=== PATIENT | female | born 1970 | race African-American/Black ===

== ENCOUNTER 2016-11-02 23:20 | Emergency (ER) | payer OTHER ==
[~2016-11-02] VITALS: Ht 162.6 cm; Wt 129.0 kg
[2016-11-02 23:59] LABS: BASOPHIL COUNT 0.1 K/uL (0-0.1); EOSINOPHIL (%) 2.3 % (0-5); EOSINOPHIL COUNT 0.2 K/uL (0-0.3); HEMATOCRIT 33.9 % (36.0-46.0); IMMATURE GRANULOCYTE (%) 0.3 % (0.0-0.7); IMMATURE GRANULOCYTE COUNT 0.2 K/uL; LYMPHOCYTE COUNT 1.9 K/uL (1.0-2.8); MCH 26.2 PG (29.0-34.0); MCHC 30.1 G/DL (30.0-36.0); MCV 86.9 FL (83-99); MEAN PLAT.VOLUME 10.3 uM^3 (9.5-12.4); MONOCYTE (%) 10.9 % (3-12); MONOCYTE COUNT 0.8 K/uL (0-0.8); NEUTROPHIL (%) 58.5 % (45-76); NEUTROPHIL COUNT 4.2 K/uL (1.8-6.4); PLATELET COUNT 428 K/uL (156-360); RBC DIS.WIDTH-CV 15.9 % (11.8-14.6); RBC DIS.WIDTH-SD 49.5 % (39-53); WHITE BLOOD COUNT 7.1 K/uL (4.1-10.2)
[2016-11-03 00:09] LABS: CHLORIDE 102 mEq/L (99-109); POTASSIUM 4.9 mEq/L (3.7-5.4); SODIUM 138 mEq/L (136-147)
[2016-11-03 00:11] LABS: GLUCOSE 138 mg/dL (70-99)
[2016-11-03 00:12] LABS: ANION GAP 13 MEQ/L (2-14)
[2016-11-03 00:13] LABS: TOTAL BILIRUBIN 0.1 mg/dL (0.0-1.0)
[2016-11-03 00:15] LABS: ALKALINE PHOSPHATASE 81 IU/L (3-129); GFR ESTIMATE (CALCULATED) > 59 mL/min/
[2016-11-03 00:16] LABS: UREA NITROGEN (BUN) 13 mg/dL (9-23)
[2016-11-03 00:18] LABS: LIPASE 32 U/L (1.0-51.0)
[2016-11-03 00:21] LABS: TROP-I INTERPRETATION NEGATIVE; TROPONIN-I 0.03 ng/mL (0.0-0.30)
[2016-11-03 00:23] LABS: BASE EXCESS -0.8 mEq/L (-3 to +3); BICARBONATE 26.9 mEq/L (22-26); CARBOXY HGB 2.5 % (0-5); COMMENTS - BLOOD GASES A+C+; DEVICE NC; METHEMOGLOBIN 0 % (0-1.5); O2 FLOW 3 L/MIN; PCO2 60 mm Hg (35-45); PO2 78 mm Hg (80-100); SITE RR; pH 7.26 (7.35-7.45)
[2016-11-03 04:55] VITALS: BP 134/71
[2016-11-03] MEDS ORDERED: ZESTORETIC 10-1 EAC1 PO (17:42)
[2016-11-03] MEDS ORDERED: GLUCOPHAGE500 MG PO (17:42)
[2016-11-03] MEDS ORDERED: PROAIR HFA8.5 GM IH (17:44)
[2016-11-03] MEDS ORDERED: OMEPRAZOLE40 M1 PO (17:45)
== END 2016-11-03 04:59 | disposition left against medical advice (07) ==
LOC: EME 23:20
PROVIDERS: Emergency Medicine
DX: I11.0 Hypertensive heart disease with heart failure (principal); I50.9 Heart failure, unspecified; E87.2 Acidosis; E11.9 Type 2 diabetes mellitus without complications; Z87.891 Personal history of nicotine dependence; J44.9 Chronic obstructive pulmonary disease, unspecified; Z99.81 Dependence on supplemental oxygen; N61.0 Mastitis without abscess
CPT/HCPCS: 36600; 71010; 71260; 74177; 80053; 82803; 83605; 83690; 83880; 84484; 85025; 87040; 93005; 94640; 99281; 99285; J1940; J3370

== ENCOUNTER 2016-11-03 16:17 | Inpatient (IN) | payer OTHER ==
[~2016-11-03] VITALS: Ht 160 cm; Wt 129.3 kg
[2016-11-03 17:05] LABS: EOSINOPHIL (%) 1.8 % (0-5); EOSINOPHIL COUNT 0.2 K/uL (0-0.3); HEMATOCRIT 34.7 % (36.0-46.0); IMMATURE GRANULOCYTE (%) 0.1 % (0.0-0.7); IMMATURE GRANULOCYTE COUNT 0.1 K/uL; LYMPHOCYTE COUNT 1.3 K/uL (1.0-2.8); MCH 26.1 PG (29.0-34.0); MONOCYTE (%) 8.2 % (3-12); MONOCYTE COUNT 0.7 K/uL (0-0.8); NEUTROPHIL (%) 73.5 % (45-76); PLATELET COUNT 407 K/uL (156-360); RBC DIS.WIDTH-CV 15.8 % (11.8-14.6); RBC DIS.WIDTH-SD 48.9 % (39-53); RED BLOOD COUNT 3.99 M/uL (3.80-5.20); WHITE BLOOD COUNT 8.2 K/uL (4.1-10.2)
[2016-11-03 17:13] LABS: CHLORIDE 100 mEq/L (99-109); POTASSIUM 4.7 mEq/L (3.7-5.4); SODIUM 140 mEq/L (136-147)
[2016-11-03 17:16] LABS: GLUCOSE 95 mg/dL (70-99)
[2016-11-03 17:17] LABS: ANION GAP 9 MEQ/L (2-14)
[2016-11-03 17:19] LABS: ALKALINE PHOSPHATASE 79 IU/L (3-129); GFR ESTIMATE (CALCULATED) 56 mL/min/
[2016-11-03 17:20] LABS: TOTAL BILIRUBIN 0.5 mg/dL (0.0-1.0); UREA NITROGEN (BUN) 18 mg/dL (9-23)
[2016-11-03 17:22] LABS: LIPASE 24 U/L (1.0-51.0)
[2016-11-03 17:25] LABS: TROP-I INTERPRETATION NEGATIVE; TROPONIN-I 0.03 ng/mL (0.0-0.30)
[2016-11-03 17:28] LABS: QUANTITATIVE HCG < 4.0 MIU/ML
[2016-11-03] MEDS ORDERED: ZESTORETIC 10-1 EAC1 PO (17:42)
[2016-11-03] MEDS ORDERED: GLUCOPHAGE500 MG PO (17:42)
[2016-11-03] MEDS ORDERED: PROAIR HFA8.5 GM IH (17:44)
[2016-11-03] MEDS ORDERED: OMEPRAZOLE40 M1 PO (17:45)
[2016-11-03 20:51] VITALS: BP 115/71
[2016-11-03 21:23] LABS: POINT-OF-CARE USER ID AHSUCEG
[2016-11-03 23:30] VITALS: BP 140/84
[2016-11-04 03:50] VITALS: BP 132/69
[2016-11-04 08:36] VITALS: BP 129/76
[2016-11-04 09:33] LABS: BASE EXCESS 3.2 mEq/L (-3 to +3); BICARBONATE 32.1 mEq/L (22-26); CARBOXY HGB 1.4 % (0-5); METHEMOGLOBIN 0.5 % (0-1.5); PO2 78 mm Hg (80-100)
[2016-11-04 09:39] LABS: COMMENTS - BLOOD GASES A+C+; DEVICE NC; O2 FLOW 2 L/MIN; PCO2 75 mm Hg (35-45); SITE RR; TOTAL RESP RATE 24 resp/min; pH 7.24 (7.35-7.45)
[2016-11-04 13:07] LABS: BASE EXCESS 1.6 mEq/L (-3 to +3); BICARBONATE 29.8 mEq/L (22-26); CARBOXY HGB 2.6 % (0-5); METHEMOGLOBIN 0.4 % (0-1.5); PCO2 68 mm Hg (35-45); PO2 61 mm Hg (80-100)
[2016-11-04 13:08] LABS: SITE RR
[2016-11-04 13:09] LABS: COMMENTS - BLOOD GASES A+C+; O2 FLOW 2 L/MIN
[2016-11-04 13:10] LABS: DEVICE CPAP; pH 7.25 (7.35-7.45)
[2016-11-04 14:50] VITALS: BP 119/59
[2016-11-04 16:33] LABS: POINT-OF-CARE METER ID UU14174216
[2016-11-04 19:32] VITALS: BP 121/85
[2016-11-05] VITALS (7 sets, daily range): BP systolic 113–137; BP diastolic 58–83
[2016-11-05 07:17] LABS: POINT-OF-CARE METER ID UU13113698
[2016-11-05 10:39] LABS: POINT-OF-CARE METER ID UU13113698
[2016-11-05 16:13] LABS: POINT-OF-CARE METER ID UU13113781
[2016-11-05 17:16] LABS: Estimated Average Glucose 151 mg/dL (70-123); HEMOGLOBIN A1c (GLYCOHEMOGLOB) 6.9 % HGB (Below 5.7)
[2016-11-06 03:37] VITALS: BP 114/75
[2016-11-06 06:50] LABS: HEMATOCRIT 32.5 % (36.0-46.0); MCH 24.9 PG (29.0-34.0); MCHC 28.3 G/DL (30.0-36.0); MCV 88.1 FL (83-99); MEAN PLAT.VOLUME 9.9 uM^3 (9.5-12.4); PLATELET COUNT 352 K/uL (156-360); RBC DIS.WIDTH-CV 16.1 % (11.8-14.6); RBC DIS.WIDTH-SD 51.7 % (39-53); RED BLOOD COUNT 3.69 M/uL (3.80-5.20); WHITE BLOOD COUNT 9.8 K/uL (4.1-10.2)
[2016-11-06 07:18] LABS: ANION GAP 7 MEQ/L (2-14); CHLORIDE 98 MEQ/L (99-109); GFR ESTIMATE (CALCULATED) > 59 mL/min/; GLUCOSE 92 mg/dL (70-99); POTASSIUM 4.3 MEQ/L (3.7-5.4); SAMPLE HEMOLYSIS CHECK 0; SAMPLE ICTERIC CHECK 0; SAMPLE LIPEMIA CHECK 0; SODIUM 139 MEQ/L (136-147); UREA NITROGEN (BUN) 26 mg/dL (9-23)
[2016-11-06 07:41] LABS: POINT-OF-CARE METER ID UU13113698
[2016-11-06 08:00] VITALS: BP 128/66
[2016-11-06] MEDS ORDERED: MOTRIN800 MG PO (09:08)
[2016-11-06 09:31] LABS: BASE EXCESS 6.8 mEq/L (-3 to +3); BICARBONATE 33.7 mEq/L (22-26); CARBOXY HGB 1.3 % (0-5); COMMENTS - BLOOD GASES A+C+; DEVICE NC; METHEMOGLOBIN 0.8 % (0-1.5); O2 FLOW 2 L/MIN; PCO2 61 mm Hg (35-45); PO2 81 mm Hg (80-100); SITE RR; pH 7.35 (7.35-7.45)
[2016-11-06 09:32] LABS: TOTAL RESP RATE 18 resp/min
[2016-11-06 11:40] VITALS: BP 125/73
[2016-11-06 15:30] VITALS: BP 132/76
[2016-11-06 19:55] VITALS: BP 146/67
[2016-11-06 20:28] LABS: D-DIMER ELISA 1.09 mg/L FEU (< 0.57)
[2016-11-07] VITALS (8 sets, daily range): BP systolic 108–160; BP diastolic 64–92
[2016-11-07 07:29] LABS: POINT-OF-CARE METER ID UU14174216
[2016-11-07 11:12] LABS: POINT-OF-CARE METER ID UU14174216
[2016-11-07 21:47] LABS: Neutrophil Cytoplasmic Aby Negative (Negative)
[2016-11-07 22:06] LABS: POINT-OF-CARE METER ID UU13113807
[2016-11-08 04:15] VITALS: BP 121/76
[2016-11-08 06:10] LABS: EOSINOPHIL (%) 1.4 % (0-5); EOSINOPHIL COUNT 0.1 K/uL (0-0.3); HEMATOCRIT 30.3 % (36.0-46.0); IMMATURE GRANULOCYTE (%) 0.2 % (0.0-0.7); LYMPHOCYTE COUNT 2.4 K/uL (1.0-2.8); MCH 25.9 PG (29.0-34.0); MCV 86.1 FL (83-99); MEAN PLAT.VOLUME 10.1 uM^3 (9.5-12.4); MONOCYTE (%) 11.6 % (3-12); MONOCYTE COUNT 1.1 K/uL (0-0.8); NEUTROPHIL COUNT 5.9 K/uL (1.8-6.4); PLATELET COUNT 302 K/uL (156-360); RBC DIS.WIDTH-SD 50.3 % (39-53); RED BLOOD COUNT 3.52 M/uL (3.80-5.20); WHITE BLOOD COUNT 9.6 K/uL (4.1-10.2)
[2016-11-08 06:37] LABS: ANION GAP 6 MEQ/L (2-14); CHLORIDE 99 MEQ/L (99-109); GFR ESTIMATE (CALCULATED) > 59 mL/min/; GLUCOSE 98 mg/dL (70-99); MAGNESIUM 1.9 mg/dl (1.3-2.7); POTASSIUM 4.5 MEQ/L (3.7-5.4); SAMPLE HEMOLYSIS CHECK 0; SAMPLE ICTERIC CHECK 0; SAMPLE LIPEMIA CHECK 0; SODIUM 141 MEQ/L (136-147); UREA NITROGEN (BUN) 23 mg/dL (9-23)
[2016-11-08 08:22] LABS: POINT-OF-CARE METER ID UU13113807
[2016-11-08 08:24] VITALS: BP 128/60
[2016-11-08 11:04] LABS: ANTI-NUCLEAR AB SCRN/RFLX(ANA) NONREACTIVE (NONREACTIVE); SCL-70 (SCLERODERMA) ANTIBODY 99 U/mL (0-99)
[2016-11-08 12:21] VITALS: BP 153/97
[2016-11-08 12:25] LABS: POINT-OF-CARE METER ID UU14149398
[2016-11-08 16:36] LABS: POINT-OF-CARE METER ID UU13113807
[2016-11-08 20:25] VITALS: BP 123/79
[2016-11-08 23:44] VITALS: BP 120/72
[2016-11-09 03:56] VITALS: BP 121/75
[2016-11-09 07:26] VITALS: BP 104/58
[2016-11-09 11:27] VITALS: BP 113/65
[2016-11-09 16:00] VITALS: BP 108/55
[2016-11-09 23:36] VITALS: BP 169/77
[2016-11-10 06:55] LABS: HEMATOCRIT 30.1 % (36.0-46.0); MCH 25.4 PG (29.0-34.0); MCHC 29.2 G/DL (30.0-36.0); MEAN PLAT.VOLUME 10.9 uM^3 (9.5-12.4); PLATELET COUNT 315 K/uL (156-360); RBC DIS.WIDTH-CV 16.1 % (11.8-14.6); RBC DIS.WIDTH-SD 50.9 % (39-53); RED BLOOD COUNT 3.46 M/uL (3.80-5.20); WHITE BLOOD COUNT 8.8 K/uL (4.1-10.2)
[2016-11-10 07:13] LABS: EOSINOPHIL (%) 1.5 % (0-5); EOSINOPHIL COUNT 0.1 K/uL (0-0.3); IMMATURE GRANULOCYTE (%) 0.2 % (0.0-0.7); LYMPHOCYTE COUNT 2.5 K/uL (1.0-2.8); MONOCYTE (%) 11.9 % (3-12); MONOCYTE COUNT 1.1 K/uL (0-0.8); NEUTROPHIL (%) 57.4 % (45-76); NEUTROPHIL COUNT 5.1 K/uL (1.8-6.4)
[2016-11-10 07:21] LABS: ALKALINE PHOSPHATASE 51 IU/L (3-129); ANION GAP 7 MEQ/L (2-14); CHLORIDE 101 MEQ/L (99-109); GFR ESTIMATE (CALCULATED) > 59 mL/min/; GLUCOSE 100 mg/dL (70-99); SAMPLE HEMOLYSIS CHECK 1; SAMPLE ICTERIC CHECK 0; SAMPLE LIPEMIA CHECK 0; SODIUM 140 MEQ/L (136-147); UREA NITROGEN (BUN) 22 mg/dL (9-23)
[2016-11-10 07:23] LABS: POTASSIUM 4.5 MEQ/L (3.7-5.4); TOTAL BILIRUBIN 0.4 MG/DL (0.0-1.0)
[2016-11-10 07:25] VITALS: BP 137/85
[2016-11-10 11:48] LABS: POINT-OF-CARE METER ID UU14162508
[2016-11-10] MEDS ORDERED: HYDROCODON-ACE1 EAC7 PO (12:28)
[2016-11-10] MEDS ORDERED: ADVAIR HFA120 INHALA IH (12:28)
[2016-11-10] MEDS ORDERED: PREDNISONE10 MG PO (12:31)
== END 2016-11-10 15:53 | disposition home or self-care (01) | DRG 189 ==
LOC: EME 16:17 → 2EAST 19:32 → EDOF 19:32 → 4EAST 19:32 → 2EAST 20:38 → 4EAST 11-04 14:47 → 4SOUTH 11-07 16:52 → 2EASTP 11-08 20:05
PROVIDERS: Emergency Medicine; Family Medicine; Hospitalist; Internal Medicine; Internal Medicine Medical Oncology; Internal Medicine Pulmonary Disease
PROC: 0HBT3ZX Excision of Right Breast, Percutaneous Approach, Diagnostic (ICD-10-PCS; principal; 2016-11-08)
DX: J96.21 Acute and chronic respiratory failure with hypoxia (principal); E87.2 Acidosis; I27.2 Other secondary pulmonary hypertension; Z68.42 Body mass index [BMI] 45.0-49.9, adult; E66.2 Morbid (severe) obesity with alveolar hypoventilation; J96.22 Acute and chronic respiratory failure with hypercapnia; I10 Essential (primary) hypertension; N61.0 Mastitis without abscess; E11.9 Type 2 diabetes mellitus without complications; G47.33 Obstructive sleep apnea (adult) (pediatric); J45.909 Unspecified asthma, uncomplicated; I89.0 Lymphedema, not elsewhere classified; G93.2 Benign intracranial hypertension; Z79.84 Long term (current) use of oral hypoglycemic drugs; J44.1 Chronic obstructive pulmonary disease with (acute) exacerbation; D64.9 Anemia, unspecified; Z87.891 Personal history of nicotine dependence
CPT/HCPCS: 36600; 71010; 71260; 74177; 76642; 78582; 80048; 80053; 82803; 82948; 83036; 83605; 83690; 83735; 83880; 84484; 84702; 85025; 85027; 85379; 86021 90; 86038; 86235; 86430; 87040; 88305; 88342 TC; 93005; 93970; 94010; 94640; 94640 76; 94660; 94799; 99202; 99281; 99285; A9503; A9540; A9567; J0295; J1650; J1815; J1940; J2250; J2405; J3010; J3370; J7030; J7050; J7512

== ENCOUNTER 2017-02-10 16:01 | Emergency (ER) | payer OTHER ==
[~2017-02-10] VITALS: Ht 162.6 cm; Wt 119.0 kg
[~2017-02-10 16:01] MED LIST: ADVAIR HFA120 INHALA IH; GLUCOPHAGE500 MG PO; HYDROCODON-ACE1 EAC7 PO; MOTRIN800 MG PO; OMEPRAZOLE40 M1 PO; PREDNISONE10 MG PO; PROAIR HFA8.5 GM IH; ZESTORETIC 10-1 EAC1 PO
[2017-02-10 17:55] LABS: EOSINOPHIL (%) 3.8 % (0-5); EOSINOPHIL COUNT 0.5 K/uL (0-0.3); IMMATURE GRANULOCYTE (%) 0.6 % (0.0-0.7); IMMATURE GRANULOCYTE COUNT 0.1 K/uL; INSTRUMENT ABS NEUTROPHIL CT 10.8 K/uL; MCH 26.7 PG (29.0-34.0); MCV 89.2 FL (83-99); MEAN PLAT.VOLUME 9.9 uM^3 (9.5-12.4); MONOCYTE (%) 2.3 % (3-12); MONOCYTE COUNT 0.3 K/uL (0-0.8); NEUTROPHIL (%) 85.3 % (45-76); NEUTROPHIL COUNT 10.8 K/uL (1.8-6.4); PLATELET COUNT 486 K/uL (156-360); RBC DIS.WIDTH-CV 16.9 % (11.8-14.6); RED BLOOD COUNT 4.15 M/uL (3.80-5.20); WHITE BLOOD COUNT 12.7 K/uL (4.1-10.2)
[2017-02-10 18:00] LABS: ADD MIUA? YES; BILIRUBIN NEGATIVE; BLOOD MODERATE; COLOR YELLOW ((YELLOW)); GLUCOSE (STRIP) NEGATIVE; KETONES NEGATIVE; LEUKOCYTES NEGATIVE; NITRITE NEGATIVE; PROTEIN (STRIP) 30; SPECIFIC GRAVITY 1.012 (1.000-1.030)
[2017-02-10 18:03] LABS: CHLORIDE 95 mEq/L (99-109); POTASSIUM 4.6 mEq/L (3.7-5.4); SODIUM 136 mEq/L (136-147)
[2017-02-10 18:05] LABS: GLUCOSE 118 mg/dL (70-99)
[2017-02-10 18:06] LABS: ANION GAP 12 MEQ/L (2-14); BACTERIA RARE /HPF; EPITHELIAL CELLS RARE /HPF; MUCUS TRACE /LPF; RED BLOOD CELLS 30-40 /HPF (0-5); UCUL ADDED? NO; WHITE BLOOD CELLS 0-5 /HPF (0-5)
[2017-02-10 18:08] LABS: GFR ESTIMATE (CALCULATED) > 59 mL/min/
[2017-02-10 18:10] LABS: UREA NITROGEN (BUN) 13 mg/dL (9-23)
[2017-02-10 18:12] LABS: CREATINE KINASE 101 IU/L (1-294); SALICYLATE < 5.0 MG/DL (15-30)
[2017-02-10 18:18] LABS: TROP-I INTERPRETATION NEGATIVE; TROPONIN-I 0.04 ng/mL (0.0-0.30)
[2017-02-10] MEDS ORDERED: ROXICODONE5 MG PO (19:19)
[2017-02-10 20:09] VITALS: BP 107/69
== END 2017-02-10 20:24 | disposition home or self-care (01) ==
LOC: EME 16:01
PROVIDERS: Emergency Medicine
DX: M79.1 Myalgia (principal); E11.9 Type 2 diabetes mellitus without complications; I10 Essential (primary) hypertension; Z79.84 Long term (current) use of oral hypoglycemic drugs; Z87.891 Personal history of nicotine dependence
CPT/HCPCS: 71010; 80048; 81003; 82550; 84484; 85025; 93005; 99281; 99284; G0480; J1885; J7030

== ENCOUNTER 2017-04-23 03:51 | Inpatient (IN) | payer OTHER ==
[~2017-04-23] VITALS: Ht 162.6 cm; Wt 119.5 kg
[~2017-04-23 03:51] MED LIST changes: +ROXICODONE5 MG PO
[2017-04-23 04:34] LABS: HEMATOCRIT 37.5 % (36.0-46.0); MCH 27.5 PG (29.0-34.0); MCHC 29.9 G/DL (30.0-36.0); MCV 91.9 FL (83-99); MEAN PLAT.VOLUME 10.1 uM^3 (9.5-12.4); PLATELET COUNT 330 K/uL (156-360); RBC DIS.WIDTH-SD 56.8 % (39-53); RED BLOOD COUNT 4.08 M/uL (3.80-5.20); WHITE BLOOD COUNT 10.2 K/uL (4.1-10.2)
[2017-04-23 04:45] LABS: CHLORIDE 98 mEq/L (99-109); POTASSIUM 4.5 mEq/L (3.7-5.4); SODIUM 136 mEq/L (136-147)
[2017-04-23 04:47] LABS: GLUCOSE 207 mg/dL (70-99)
[2017-04-23 04:49] LABS: ANION GAP 12 MEQ/L (2-14); TOTAL BILIRUBIN 0.5 mg/dL (0.0-1.0)
[2017-04-23 04:51] LABS: ALKALINE PHOSPHATASE 74 IU/L (3-129); GFR ESTIMATE (CALCULATED) > 59 mL/min/
[2017-04-23 04:52] LABS: UREA NITROGEN (BUN) 9 mg/dL (9-23)
[2017-04-23 04:55] LABS: TROP-I INTERPRETATION NEGATIVE; TROPONIN-I 0.02 ng/mL (0.0-0.30)
[2017-04-23 05:13] LABS: LIPASE 1393 U/L (1.0-51.0)
[2017-04-23 06:21] LABS: ADD MIUA? YES; BILIRUBIN NEGATIVE; BLOOD NEGATIVE; COLOR YELLOW ((YELLOW)); GLUCOSE (STRIP) NEGATIVE; KETONES NEGATIVE; LEUKOCYTES NEGATIVE; NITRITE NEGATIVE; PROTEIN (STRIP) NEGATIVE; SPECIFIC GRAVITY 1.012 (1.000-1.030); UROBILINOGEN 0.2 MG/DL (0.2-1.0)
[2017-04-23 06:29] LABS: BACTERIA RARE /HPF; EPITHELIAL CELLS RARE /HPF; GRANULAR CASTS 0-5 /LPF; HYALINE CASTS 30-40 /LPF; MUCUS TRACE /LPF; RED BLOOD CELLS 0-5 /HPF (0-5); UCUL ADDED? NO; WHITE BLOOD CELLS 0-5 /HPF (0-5)
[2017-04-23 06:37] LABS: SERUM ETHYL ALCOHOL < 10 mg/dL
[2017-04-23] MEDS ORDERED: VITAMIN D31000 UNI2 PO (09:40)
[2017-04-23] MEDS ORDERED: CYANOCOBALAM1000 MCG PO (09:40)
[2017-04-23 16:09] VITALS: BP 140/71
[2017-04-23 23:42] VITALS: BP 124/70
[2017-04-24] VITALS (18 sets, daily range): BP systolic 110–167; BP diastolic 69–101
[2017-04-24 06:09] LABS: BICARBONATE 36.8 mEq/L (22-26); CARBOXY HGB 1.8 % (0-5); METHEMOGLOBIN 1.3 % (0-1.5); PCO2 108 mm Hg (35-45); PO2 70 mm Hg (80-100); pH 7.14 (7.35-7.45)
[2017-04-24 06:10] LABS: COMMENTS - BLOOD GASES A+C+; DEVICE NC; O2 FLOW 6 L/MIN; SITE RR; TOTAL RESP RATE 18 resp/min
[2017-04-24 06:16] LABS: EOSINOPHIL (%) 0.1 % (0-5); HEMATOCRIT 37.5 % (36.0-46.0); IMMATURE GRANULOCYTE (%) 0.7 % (0.0-0.7); IMMATURE GRANULOCYTE COUNT 0.1 K/uL; INSTRUMENT ABS NEUTROPHIL CT 9.3 K/uL; LYMPHOCYTE COUNT 0.5 K/uL (1.0-2.8); MCH 27.4 PG (29.0-34.0); MCHC 28.5 G/DL (30.0-36.0); MCV 95.9 FL (83-99); MONOCYTE (%) 7.4 % (3-12); MONOCYTE COUNT 0.8 K/uL (0-0.8); NEUTROPHIL (%) 86.7 % (45-76); NEUTROPHIL COUNT 9.3 K/uL (1.8-6.4); NRBC (%) 0.3 /100 WBC (0-0); PLATELET COUNT 287 K/uL (156-360); RBC DIS.WIDTH-CV 16.7 % (11.8-14.6); RBC DIS.WIDTH-SD 58.9 % (39-53); RED BLOOD COUNT 3.91 M/uL (3.80-5.20); WHITE BLOOD COUNT 10.7 K/uL (4.1-10.2)
[2017-04-24 06:18] LABS: CHLORIDE 99 mEq/L (99-109); SODIUM 138 mEq/L (136-147)
[2017-04-24 06:20] LABS: GLUCOSE 141 mg/dL (70-99)
[2017-04-24 06:21] LABS: ANION GAP 9 MEQ/L (2-14)
[2017-04-24 06:23] LABS: ALKALINE PHOSPHATASE 81 IU/L (3-129)
[2017-04-24 06:24] LABS: GFR ESTIMATE (CALCULATED) > 59 mL/min/
[2017-04-24 06:25] LABS: UREA NITROGEN (BUN) 12 mg/dL (9-23)
[2017-04-24 06:30] LABS: POTASSIUM 6.3 mEq/L (3.7-5.4); TOTAL BILIRUBIN 0.3 mg/dL (0.0-1.0)
[2017-04-24 08:20] LABS: CARBOXY HGB 1.8 % (0-5); METHEMOGLOBIN 0.8 % (0-1.5); PCO2 99 mm Hg (35-45); PO2 84 mm Hg (80-100); SITE LR
[2017-04-24 08:21] LABS: COMMENTS - BLOOD GASES C+; DEVICE NC; O2 FLOW 5 L/MIN; TOTAL RESP RATE 22 resp/min
[2017-04-24 08:22] LABS: pH 7.18 (7.35-7.45)
[2017-04-24 11:37] LABS: METH RESISTANT S AUREUS PCR NEGATIVE (NEGATIVE)
[2017-04-24 11:38] LABS: PROBE CHECK PASS; SPECIMEN PROCESSING CONTROL PASS
[2017-04-24 12:01] LABS: POINT-OF-CARE METER ID UU13113731
[2017-04-24 16:16] LABS: BASE EXCESS 4.8 mEq/L (-3 to +3); BICARBONATE 34.8 mEq/L (22-26); CARBOXY HGB 1.7 % (0-5); COMMENTS - BLOOD GASES +C; DEVICE HFNC; METHEMOGLOBIN 1.3 % (0-1.5); O2 FLOW 6 L/MIN; PCO2 87 mm Hg (35-45); PO2 67 mm Hg (80-100); SITE RB; TOTAL RESP RATE 22 resp/min; pH 7.21 (7.35-7.45)
[2017-04-24 18:07] LABS: POINT-OF-CARE METER ID UU14174217
[2017-04-24 18:39] LABS: ANION GAP 5 MEQ/L (2-14); CHLORIDE 99 MEQ/L (99-109); SAMPLE HEMOLYSIS CHECK 0; SAMPLE ICTERIC CHECK 0; SAMPLE LIPEMIA CHECK 0; SODIUM 138 MEQ/L (136-147)
[2017-04-24 18:40] LABS: POTASSIUM 4.8 MEQ/L (3.7-5.4)
[2017-04-24 18:44] LABS: GFR ESTIMATE (CALCULATED) > 59 mL/min/; GLUCOSE 113 mg/dL (70-99); UREA NITROGEN (BUN) 9 mg/dL (9-23)
[2017-04-24 21:42] LABS: BASE EXCESS 2.5 mEq/L (-3 to +3); BICARBONATE 32.8 mEq/L (22-26); COMMENTS - BLOOD GASES C+; DEVICE NCH; METHEMOGLOBIN 1.2 % (0-1.5); O2 FLOW 10 L/MIN; PCO2 86 mm Hg (35-45); PO2 79 mm Hg (80-100); SITE RR; pH 7.19 (7.35-7.45)
[2017-04-24 23:54] LABS: POINT-OF-CARE METER ID UU14208751
[2017-04-25] VITALS (13 sets, daily range): BP systolic 127–163; BP diastolic 76–110
[2017-04-25 06:02] LABS: HEMATOCRIT 36.5 % (36.0-46.0); MCH 27.1 PG (29.0-34.0); MCHC 27.9 G/DL (30.0-36.0); MCV 96.8 FL (83-99); MEAN PLAT.VOLUME 10.6 uM^3 (9.5-12.4); PLATELET COUNT 276 K/uL (156-360); RBC DIS.WIDTH-CV 16.4 % (11.8-14.6); RBC DIS.WIDTH-SD 58.9 % (39-53); RED BLOOD COUNT 3.77 M/uL (3.80-5.20); WHITE BLOOD COUNT 11.4 K/uL (4.1-10.2)
[2017-04-25 06:06] LABS: ALKALINE PHOSPHATASE 67 IU/L (3-129); ANION GAP 7 MEQ/L (2-14); CHLORIDE 101 MEQ/L (99-109); GFR ESTIMATE (CALCULATED) > 59 mL/min/; GLUCOSE 129 mg/dL (70-99); MAGNESIUM 1.8 mg/dl (1.3-2.7); SAMPLE HEMOLYSIS CHECK 0; SAMPLE ICTERIC CHECK 0; SAMPLE LIPEMIA CHECK 0; SODIUM 138 MEQ/L (136-147); TOTAL BILIRUBIN 0.4 MG/DL (0.0-1.0); UREA NITROGEN (BUN) 11 mg/dL (9-23)
[2017-04-25 06:09] LABS: POINT-OF-CARE METER ID UU14174217
[2017-04-25 11:25] LABS: POINT-OF-CARE METER ID UU14174217
[2017-04-25 12:39] LABS: BASE EXCESS 3.4 mEq/L (-3 to +3); BICARBONATE 31.7 mEq/L (22-26); CARBOXY HGB 1.8 % (0-5); PCO2 69 mm Hg (35-45); PO2 61 mm Hg (80-100); pH 7.27 (7.35-7.45)
[2017-04-25 12:40] LABS: COMMENTS - BLOOD GASES +C; DEVICE HFNC; O2 FLOW 4 L/MIN; SITE LB; TOTAL RESP RATE 24 resp/min
[2017-04-25 17:29] LABS: POINT-OF-CARE METER ID UU13113731
[2017-04-26 00:09] LABS: POINT-OF-CARE METER ID UU14208751
[2017-04-26 05:22] LABS: POINT-OF-CARE METER ID UU14208751
[2017-04-26 05:32] LABS: HEMATOCRIT 32.7 % (36.0-46.0); MCH 28.1 PG (29.0-34.0); MCHC 29.7 G/DL (30.0-36.0); MCV 94.8 FL (83-99); MEAN PLAT.VOLUME 10.7 uM^3 (9.5-12.4); NRBC (%) 0.2 /100 WBC (0-0); PLATELET COUNT 277 K/uL (156-360); RBC DIS.WIDTH-SD 58.8 % (39-53); RED BLOOD COUNT 3.45 M/uL (3.80-5.20); WHITE BLOOD COUNT 12.7 K/uL (4.1-10.2)
[2017-04-26 05:57] LABS: ALKALINE PHOSPHATASE 76 IU/L (3-129); ANION GAP 5 MEQ/L (2-14); CHLORIDE 101 MEQ/L (99-109); GFR ESTIMATE (CALCULATED) > 59 mL/min/; GLUCOSE 191 mg/dL (70-99); POTASSIUM 5.1 MEQ/L (3.7-5.4); SAMPLE HEMOLYSIS CHECK 0; SAMPLE ICTERIC CHECK 0; SAMPLE LIPEMIA CHECK 0; SODIUM 137 MEQ/L (136-147)
[2017-04-26 05:58] LABS: UREA NITROGEN (BUN) 25 mg/dL (9-23)
[2017-04-26 05:59] LABS: TOTAL BILIRUBIN 0.3 MG/DL (0.0-1.0)
[2017-04-26 07:04] LABS: Estimated Average Glucose 131 mg/dL (70-123); HEMOGLOBIN A1c (GLYCOHEMOGLOB) 6.2 % HGB (Below 5.7)
[2017-04-26 08:00] VITALS: BP 150/86
[2017-04-26 11:51] LABS: POINT-OF-CARE METER ID UU14174217
[2017-04-27] MEDS ORDERED: LORTAB 5-325 M1 EACH PO (23:02)
[2017-04-27] MEDS ORDERED: ZOFRAN ODT4 MG PO (23:02)
== END 2017-04-26 12:20 | disposition home or self-care (01) | DRG 438 ==
LOC: EME 03:51 → EDOF 07:26 → 4WEST 07:26 → ENRESERV 07:31 → 5SOUTH 15:45 → ENRESERV 04-24 08:38 → 5SOUTH 04-24 08:39 → ENRESERV 04-24 08:44 → 4WEST 04-24 08:57
PROVIDERS: Emergency Medicine; Hospitalist; Internal Medicine; Internal Medicine Critical Care Medicine; Nurse Practitioner Adult Health; Physician Assistant
PROC: 5A09357 Assistance with Respiratory Ventilation, Less than 24 Consecutive Hours, Continuous Positive Airway Pressure (ICD-10-PCS; principal; 2017-04-24)
DX: K85.20 Alcohol induced acute pancreatitis without necrosis or infection (principal); F10.10 Alcohol abuse, uncomplicated; J96.21 Acute and chronic respiratory failure with hypoxia; E87.2 Acidosis; E87.5 Hyperkalemia; E11.9 Type 2 diabetes mellitus without complications; I10 Essential (primary) hypertension; G47.33 Obstructive sleep apnea (adult) (pediatric); E66.2 Morbid (severe) obesity with alveolar hypoventilation; Z79.84 Long term (current) use of oral hypoglycemic drugs; Z87.891 Personal history of nicotine dependence; Z99.81 Dependence on supplemental oxygen; Z91.19 Patient's noncompliance with other medical treatment and regimen
CPT/HCPCS: 36600; 71010; 74177; 76705; 80048; 80048 91; 80053; 81003; 82803; 82948; 83036; 83605; 83690; 83735; 84100; 84484; 85025; 85027; 87641; 93005; 93306; 94010; 94640; 94640 76; 94660; 94760; 94799; 99202; 99281; 99284; G0480; J0610; J1170; J1650; J1815; J1885; J2270; J2405; J2930; J3411; J7030; J7050; J7120; S0028

== ENCOUNTER 2017-04-27 17:31 | Emergency (ER) | payer OTHER ==
[~2017-04-27] VITALS: Ht 162.6 cm; Wt 123.8 kg
[~2017-04-27 17:31] MED LIST changes: +CYANOCOBALAM1000 MCG PO; +VITAMIN D31000 UNI2 PO
[2017-04-27 18:36] LABS: CHLORIDE 101 mEq/L (99-109); SODIUM 142 mEq/L (136-147)
[2017-04-27 18:42] LABS: ALKALINE PHOSPHATASE 86 IU/L (3-129); ANION GAP 12 MEQ/L (2-14); GFR ESTIMATE (CALCULATED) > 59 mL/min/; GLUCOSE 100 mg/dL (70-99); POTASSIUM 3.9 mEq/L (3.7-5.4); TOTAL BILIRUBIN 0.5 mg/dL (0.0-1.0)
[2017-04-27 18:43] LABS: UREA NITROGEN (BUN) 23 mg/dL (9-23)
[2017-04-27 18:53] LABS: QUANTITATIVE HCG < 4.0 MIU/ML
[2017-04-27 19:08] LABS: LIPASE 69 U/L (1.0-51.0)
[2017-04-27 19:19] LABS: HEMATOCRIT 38.4 % (36.0-46.0); MCH 27.7 PG (29.0-34.0); MCHC 30.5 G/DL (30.0-36.0); MEAN PLAT.VOLUME 10.1 uM^3 (9.5-12.4); PLATELET COUNT 322 K/uL (156-360); RBC DIS.WIDTH-CV 16.5 % (11.8-14.6); RBC DIS.WIDTH-SD 55.2 % (39-53); RED BLOOD COUNT 4.22 M/uL (3.80-5.20); WHITE BLOOD COUNT 11.7 K/uL (4.1-10.2)
[2017-04-27 22:39] LABS: ADD MIUA? YES; BILIRUBIN NEGATIVE; BLOOD LARGE; GLUCOSE (STRIP) NEGATIVE; KETONES NEGATIVE; LEUKOCYTES SMALL; NITRITE NEGATIVE; PROTEIN (STRIP) 100; SPECIFIC GRAVITY 1.015 (1.000-1.030); UROBILINOGEN 0.2 MG/DL (0.2-1.0)
[2017-04-27 22:41] LABS: COLOR RED ((YELLOW))
[2017-04-27 22:58] LABS: EPITHELIAL CELLS 1+ /HPF; MUCUS NONE SEEN /LPF; RED BLOOD CELLS TNTC /HPF (0-5)
[2017-04-27 22:59] LABS: BACTERIA 1+ /HPF; CASTS NONE SEEN /LPF; UCUL ADDED? YES
[2017-04-27] MEDS ORDERED: LORTAB 5-325 M1 EACH PO (23:02)
[2017-04-27] MEDS ORDERED: ZOFRAN ODT4 MG PO (23:02)
[2017-04-27 23:59] VITALS: BP 132/89
== END 2017-04-28 | disposition home or self-care (01) ==
LOC: EME 17:31
DX: R10.12 Left upper quadrant pain (principal); I10 Essential (primary) hypertension; E11.9 Type 2 diabetes mellitus without complications; Z79.84 Long term (current) use of oral hypoglycemic drugs; Z87.891 Personal history of nicotine dependence
CPT/HCPCS: 80053; 81003; 83690; 84702; 85027; 87086; 93005; 99281; 99285; J1885; J2270; J2310; J2405; J7030

== ENCOUNTER 2017-10-10 22:13 | Emergency (ER) | payer OTHER ==
[~2017-10-10] VITALS: Ht 162.6 cm; Wt 126.8 kg
[~2017-10-10 22:13] MED LIST changes: +LORTAB 5-325 M1 EACH PO; +ZOFRAN ODT4 MG PO
[2017-10-11 02:28] VITALS: BP 137/83
== END 2017-10-11 02:29 | disposition home or self-care (01) ==
LOC: EME 22:13
DX: S80.01XA Contusion of right knee, initial encounter (principal); S83.91XA Sprain of unspecified site of right knee, initial encounter; W01.0XXA Fall on same level from slipping, tripping and stumbling without subsequent striking against object, initial encounter
CPT/HCPCS: 73564; 99281; 99284

== ENCOUNTER 2017-11-19 21:22 | Inpatient (IN) | payer OTHER ==
[~2017-11-19] VITALS: Ht 162.6 cm; Wt 134.2 kg
[2017-11-19 22:22] LABS: HEMATOCRIT 31.5 % (36.0-46.0); HEMOGLOBIN 8.9 G/DL (11.9-15.5); MCHC 28.3 G/DL (30.0-36.0); MCV 92.1 FL (83-99); PLATELET COUNT 313 K/uL (156-360); RBC DIS.WIDTH-CV 18.1 % (11.8-14.6); RBC DIS.WIDTH-SD 61.2 % (39-53); RED BLOOD COUNT 3.42 M/uL (3.80-5.20); WHITE BLOOD COUNT 7.6 K/uL (4.1-10.2)
[2017-11-19 22:36] LABS: ALBUMIN 3.7 g/dL (3.2-4.8); CHLORIDE 100 mEq/L (99-109); POTASSIUM 5.7 mEq/L (3.7-5.4); SODIUM 137 mEq/L (136-147)
[2017-11-19 22:38] LABS: GLUCOSE 97 mg/dL (70-99); TOTAL PROTEIN 7.9 g/dL (6.4-8.3)
[2017-11-19 22:40] LABS: TOTAL BILIRUBIN 0.5 mg/dL (0.0-1.0)
[2017-11-19 22:42] LABS: ALKALINE PHOSPHATASE 163 IU/L (3-129); CREATININE 1.2 mg/dL (0.6-1.3); GFR ESTIMATE (CALCULATED) > 59 mL/min/
[2017-11-19 22:43] LABS: UREA NITROGEN (BUN) 24 mg/dL (9-23)
[2017-11-19 22:44] LABS: AST (GOT) 22 IU/L (2-34)
[2017-11-19 22:45] LABS: ALT (GPT) 14 IU/L (3-49)
[2017-11-20] MEDS ORDERED: TYLENOL EXTRA500 MG PO (01:37)
[2017-11-20] MEDS ORDERED: VITAMIN B-6100 MG PO (01:38)
[2017-11-20 01:39] LABS: TROP-I INTERPRETATION NEGATIVE; TROPONIN-I 0.03 ng/mL (0.0-0.30)
[2017-11-20 03:22] LABS: MAGNESIUM 2.1 mg/dl (1.3-2.7); PHOSPHORUS 4.7 mg/dL (2.5-4.9)
[2017-11-20 04:04] VITALS: BP 129/81
[2017-11-20 07:08] LABS: TROP-I INTERPRETATION NEGATIVE; TROPONIN-I 0.03 ng/mL (0.0-0.30)
[2017-11-20 08:30] VITALS: BP 115/79
[2017-11-20 11:55] VITALS: BP 136/68
[2017-11-20 16:15] VITALS: BP 121/71
[2017-11-20 19:54] VITALS: BP 122/69
[2017-11-21] VITALS (7 sets, daily range): BP systolic 95–124; BP diastolic 52–71
[2017-11-21 05:48] LABS: CHLORIDE 97 MEQ/L (99-109); CREATININE 1.2 MG/DL (0.6-1.3); GFR ESTIMATE (CALCULATED) > 59 mL/min/; GLUCOSE 115 mg/dL (70-99); POTASSIUM 5.2 MEQ/L (3.7-5.4); SODIUM 137 MEQ/L (136-147); UREA NITROGEN (BUN) 26 mg/dL (9-23)
[2017-11-21 20:37] LABS: UR CREATININE CONCENTRATION 142.2 MG/DL
[2017-11-22 04:17] VITALS: BP 124/59
[2017-11-22 05:54] LABS: BASOPHIL (%) 0.7 % (0-1); EOSINOPHIL (%) 5.2 % (0-5); EOSINOPHIL COUNT 0.3 K/uL (0-0.3); HEMATOCRIT 30.4 % (36.0-46.0); HEMOGLOBIN 8.2 G/DL (11.9-15.5); IMMATURE GRANULOCYTE (%) 0.3 % (0.0-0.7); LYMPHOCYTE (%) 18.8 % (15-42); LYMPHOCYTE COUNT 1.1 K/uL (1.0-2.8); MCH 24.9 PG (29.0-34.0); MCV 92.4 FL (83-99); MONOCYTE COUNT 0.9 K/uL (0-0.8); NEUTROPHIL COUNT 3.5 K/uL (1.8-6.4); PLATELET COUNT 294 K/uL (156-360); RBC DIS.WIDTH-CV 17.7 % (11.8-14.6); RBC DIS.WIDTH-SD 60.2 % (39-53); RED BLOOD COUNT 3.29 M/uL (3.80-5.20); WHITE BLOOD COUNT 5.8 K/uL (4.1-10.2)
[2017-11-22 06:00] LABS: CHLORIDE 97 MEQ/L (99-109); CREATININE 1.1 MG/DL (0.6-1.3); GFR ESTIMATE (CALCULATED) > 59 mL/min/; POTASSIUM 5.3 MEQ/L (3.7-5.4); SODIUM 139 MEQ/L (136-147); UREA NITROGEN (BUN) 22 mg/dL (9-23)
[2017-11-22 06:05] LABS: GLUCOSE 86 mg/dL (70-99); MAGNESIUM 1.7 mg/dl (1.3-2.7)
[2017-11-22 08:39] LABS: QUANTITATIVE HCG < 4.0 MIU/ML
[2017-11-22 08:52] VITALS: BP 110/64
[2017-11-22 13:27] VITALS: BP 108/74
[2017-11-22 17:00] VITALS: BP 112/67
[2017-11-22 20:09] VITALS: BP 104/60
[2017-11-23 00:05] VITALS: BP 119/73
[2017-11-23 04:09] VITALS: BP 130/91
[2017-11-23 07:45] VITALS: BP 107/75
[2017-11-23 09:09] LABS: CHLORIDE 97 MEQ/L (99-109); GFR ESTIMATE (CALCULATED) > 59 mL/min/; GLUCOSE 102 mg/dL (70-99); POTASSIUM 4.9 MEQ/L (3.7-5.4); SODIUM 141 MEQ/L (136-147); UREA NITROGEN (BUN) 20 mg/dL (9-23)
[2017-11-23 10:14] LABS: BASE EXCESS 12.8 mEq/L (-3 to +3); BICARBONATE 41.8 mEq/L (22-26); CARBOXY HGB 1.7 % (0-5); METHEMOGLOBIN 1.2 % (0-1.5); PO2 106 mm Hg (80-100)
[2017-11-23 10:15] LABS: COMMENTS - BLOOD GASES A+C+; DEVICE NC; O2 FLOW 5 L/MIN; PCO2 89 mm Hg (35-45); SITE RR; pH 7.28 (7.35-7.45)
[2017-11-23 12:45] VITALS: BP 112/78
[2017-11-23 16:00] VITALS: BP 131/67
[2017-11-23 16:25] LABS: BASE EXCESS 13.6 mEq/L (-3 to +3); BICARBONATE 41.4 mEq/L (22-26); CARBOXY HGB 1.7 % (0-5); METHEMOGLOBIN 1.2 % (0-1.5); pH 7.35 (7.35-7.45)
[2017-11-23 16:26] LABS: COMMENTS - BLOOD GASES A+C+; DEVICE NC; O2 FLOW 3 L/MIN; PCO2 75 mm Hg (35-45); PO2 69 mm Hg (80-100); SITE RR
[2017-11-23 19:30] VITALS: BP 147/62
[2017-11-24 00:19] VITALS: BP 134/82
[2017-11-24 03:26] VITALS: BP 109/59
[2017-11-24 05:20] LABS: BASOPHIL (%) 0.4 % (0-1); EOSINOPHIL (%) 1.8 % (0-5); EOSINOPHIL COUNT 0.1 K/uL (0-0.3); HEMOGLOBIN 8.3 G/DL (11.9-15.5); IMMATURE GRANULOCYTE (%) 0.3 % (0.0-0.7); LYMPHOCYTE (%) 15.2 % (15-42); MCH 24.9 PG (29.0-34.0); MCHC 27.7 G/DL (30.0-36.0); MCV 89.8 FL (83-99); MONOCYTE (%) 12.5 % (3-12); MONOCYTE COUNT 0.9 K/uL (0-0.8); NEUTROPHIL (%) 69.8 % (45-76); NEUTROPHIL COUNT 4.7 K/uL (1.8-6.4); PLATELET COUNT 314 K/uL (156-360); RBC DIS.WIDTH-SD 59.2 % (39-53); RED BLOOD COUNT 3.34 M/uL (3.80-5.20); WHITE BLOOD COUNT 6.8 K/uL (4.1-10.2)
[2017-11-24 05:59] LABS: CHLORIDE 93 MEQ/L (99-109); CREATININE 0.9 MG/DL (0.6-1.3); GFR ESTIMATE (CALCULATED) > 59 mL/min/; GLUCOSE 109 mg/dL (70-99); POTASSIUM 5.1 MEQ/L (3.7-5.4); SODIUM 136 MEQ/L (136-147); UREA NITROGEN (BUN) 18 mg/dL (9-23)
[2017-11-24 08:30] VITALS: BP 117/68
[2017-11-24 11:40] VITALS: BP 112/58
[2017-11-24 15:54] VITALS: BP 128/72
[2017-11-24 19:44] VITALS: BP 133/70
[2017-11-25] VITALS (7 sets, daily range): BP systolic 108–141; BP diastolic 56–90
[2017-11-25 06:35] LABS: CHLORIDE 92 MEQ/L (99-109); CREATININE 1.1 MG/DL (0.6-1.3); GFR ESTIMATE (CALCULATED) > 59 mL/min/; GLUCOSE 95 mg/dL (70-99); MAGNESIUM 1.9 mg/dl (1.3-2.7); POTASSIUM 4.7 MEQ/L (3.7-5.4); SODIUM 139 MEQ/L (136-147); UREA NITROGEN (BUN) 20 mg/dL (9-23)
[2017-11-26 04:30] VITALS: BP 115/79
[2017-11-26 05:39] LABS: HEMATOCRIT 32.5 % (36.0-46.0); HEMOGLOBIN 9.2 G/DL (11.9-15.5); MCH 25.3 PG (29.0-34.0); MCHC 28.3 G/DL (30.0-36.0); MCV 89.3 FL (83-99); RBC DIS.WIDTH-CV 18.5 % (11.8-14.6); RBC DIS.WIDTH-SD 60.8 % (39-53); RED BLOOD COUNT 3.64 M/uL (3.80-5.20); WHITE BLOOD COUNT 7.5 K/uL (4.1-10.2)
[2017-11-26 06:14] LABS: CHLORIDE 89 MEQ/L (99-109); CREATININE 1.2 MG/DL (0.6-1.3); GFR ESTIMATE (CALCULATED) > 59 mL/min/; GLUCOSE 93 mg/dL (70-99); MAGNESIUM 1.7 mg/dl (1.3-2.7); POTASSIUM 4.8 MEQ/L (3.7-5.4); SODIUM 140 MEQ/L (136-147); UREA NITROGEN (BUN) 24 mg/dL (9-23)
[2017-11-26 06:29] LABS: PLAT.SUFFICIENCY ADEQUATE; PLATELET COUNT UNABLE TO REPORT K/uL (156-360)
[2017-11-26 09:00] VITALS: BP 137/77
[2017-11-26 12:47] VITALS: BP 124/71
[2017-11-26 15:34] VITALS: BP 116/76
[2017-11-26 21:15] VITALS: BP 103/60
[2017-11-26 22:49] VITALS: BP 117/72
[2017-11-27 02:29] VITALS: BP 121/57
[2017-11-27 06:22] LABS: CHLORIDE 88 MEQ/L (99-109); CREATININE 1.3 MG/DL (0.6-1.3); GFR ESTIMATE (CALCULATED) 56 mL/min/; GLUCOSE 94 mg/dL (70-99); SODIUM 141 MEQ/L (136-147); UREA NITROGEN (BUN) 28 mg/dL (9-23)
[2017-11-27 06:30] LABS: CARBON DIOXIDE (BICARBONATE) > 40.0 MEQ/L (20-31)
[2017-11-27 08:09] VITALS: BP 115/59
[2017-11-27 11:40] VITALS: BP 119/57
[2017-11-27 16:47] VITALS: BP 118/65
[2017-11-28] VITALS: BP 97/64
[2017-11-28 03:30] VITALS: BP 105/46
[2017-11-28 08:03] VITALS: BP 135/75
[2017-11-28] MEDS ORDERED: CARVEDILOL3.125 MG PO (12:35)
[2017-11-28] MEDS ORDERED: FUROSEMIDE80 MG PO (12:36)
[2017-11-28] MEDS ORDERED: METOLAZONE5 MG PO (12:36)
[2017-11-28] MEDS ORDERED: LISINOPRIL5 MG PO (12:36)
[2017-11-28] MEDS ORDERED: PREDNISONE10 MG PO (12:39)
[2017-11-28] MEDS ORDERED: FAMOTIDINE20 MG PO (12:40)
== END 2017-11-28 14:30 | disposition home or self-care (01) | DRG 291 ==
LOC: EME 21:22 → 4EAST 11-20 01:56 → EDOF 11-20 01:56 → ENRESERV 11-20 01:57 → 4EAST 11-20 03:52 → ENPENDDIS 11-28 → 4EAST 11-28 14:30
PROVIDERS: Hospitalist; Internal Medicine; Internal Medicine Pulmonary Disease; Physician Assistant; Student in an Organized Health Care Education/Training Program
DX: I50.33 Acute on chronic diastolic (congestive) heart failure (principal); J96.21 Acute and chronic respiratory failure with hypoxia; J45.901 Unspecified asthma with (acute) exacerbation; J44.9 Chronic obstructive pulmonary disease, unspecified; G47.33 Obstructive sleep apnea (adult) (pediatric); E66.2 Morbid (severe) obesity with alveolar hypoventilation; E11.9 Type 2 diabetes mellitus without complications; I11.0 Hypertensive heart disease with heart failure; J98.4 Other disorders of lung; I27.81 Cor pulmonale (chronic); I27.29 Other secondary pulmonary hypertension; E66.9 Obesity, unspecified; D64.9 Anemia, unspecified; I47.1 Supraventricular tachycardia; K59.00 Constipation, unspecified; Z79.84 Long term (current) use of oral hypoglycemic drugs; Z79.899 Other long term (current) drug therapy; Z82.49 Family history of ischemic heart disease and other diseases of the circulatory system; Z91.19 Patient's noncompliance with other medical treatment and regimen; Z99.81 Dependence on supplemental oxygen; Z87.891 Personal history of nicotine dependence
CPT/HCPCS: 36600; 71046; 78582; 80048; 80053; 82570; 82803; 82948; 83735; 83880; 84100; 84156; 84484; 84702; 85025; 85027; 93005; 93306; 93970; 94640; 94640 76; 94660; 94799; 99202; 99281; 99285; A9540; A9567; J1650; J1815; J1940; J7512